=== PATIENT | female | born 1995 | race Caucasian/White ===

== ENCOUNTER 2018-03-08 23:00 | Inpatient (IN) | payer OTHER ==
[2018-03-09] MEDS ORDERED: LIDOCAINE 1% (MPF) 30 ML INJ INJ (00:30)
[2018-03-09] MEDS ORDERED: IBUPROFEN 600 MG TAB PO (00:30)
[2018-03-09] MEDS ORDERED: BUTORPHANOL 2 MG INJ IV (00:30)
[2018-03-09] MEDS ORDERED: CARBOPROST 250 MCG INJ IM ×2 (00:30→13:30)
[2018-03-09] MEDS ORDERED: METHYLERGONOVINE 0.2 MG INJ IM ×2 (00:30→13:30)
[2018-03-09] MEDS ORDERED: OXYTOCIN 30 UNITS/LR 500 ML IV ×2 (00:30→13:30)
[2018-03-09] MEDS ORDERED: MISOPROSTOL 200 MCG TAB PR ×2 (00:30→13:30)
[2018-03-09 01:14] LABS: ADD MAN DIFF? NO
[2018-03-09 01:17] LABS: BASOPHILS % 0.2 % (0.0-2.0); EOSINOPHILS # 0.1 10^3/ul (0.0-0.5); EOSINOPHILS % 0.4 % (0.0-7.0); HEMATOCRIT 35.4 % (37.0-47.0); HEMOGLOBIN 12.1 g/dl (12.0-16.0); LYMPHOCYTES # 2.3 10^3/ul (0.8-2.9); LYMPHOCYTES % 16.8 % (15.0-51.0); MEAN CORPUSCULAR HEMOGLOBIN 30.6 pg (29.0-33.0); MEAN CORPUSCULAR HGB CONC 34.2 g/dl (32.0-37.0); MEAN CORPUSCULAR VOLUME 89.4 fl (82.0-101.0); MEAN PLATELET VOLUME 10.2 fl (7.4-10.4); MONOCYTE # 1.4 10^3/ul (0.3-0.9); MONOCYTES % 10.1 % (0.0-11.0); NEUTROPHILS % 71.9 % (39.0-77.0); PLATELET COUNT 260 10^3/UL (140-415); RED BLOOD COUNT 3.96 10^6/ul (4.20-5.40); RED CELL DISTRIBUTION WIDTH 13.8 % (11.5-14.5)
[2018-03-09 01:17] LABS: WHITE BLOOD COUNT 13.9 10^3/ul (4.8-10.8)
[2018-03-09] MEDS: LACTATED RINGER'S 1,000 ML IV ×3 (01:19→04:19)
[2018-03-09 01:36] LABS: INR 0.88; PT RATIO 0.9
[2018-03-09 02:10] LABS: HEPATITIS B SURFACE ANTIGEN NEGATIVE (NEGATIVE)
[2018-03-09] MEDS ORDERED: ZOLPIDEM 5 MG TAB PO ×2 (02:30→13:30)
[2018-03-09] MEDS ORDERED: KETOROLAC 30 MG INJ IV (02:30)
[2018-03-09] MEDS ORDERED: HYDROmorphONE 0.5 MG/0.5 ML SYG IV ×2 (02:30)
[2018-03-09] MEDS ORDERED: ONDANSETRON 4 MG INJ IV (02:30)
[2018-03-09] MEDS ORDERED: DIPHENHYDRAMINE 50 MG INJ IV (02:30)
[2018-03-09] MEDS ORDERED: NALOXONE (0.4 MG/ML) INJ IV (02:30)
[2018-03-09] MEDS: FENTAnyl 2MCG/ML-ROPIV 0.2% 100 ML BAG EPI (09:41)
[2018-03-09] MEDS: OXYTOCIN 30 UNITS/LR 500 ML IV ×3 (11:11→15:16)
[2018-03-09] MEDS ORDERED: ACETAMINOPHEN 325 MG TAB PO (13:30)
[2018-03-09] MEDS ORDERED: HYDROCODONE/APAP (5/325) TAB PO (13:30)
[2018-03-09] MEDS ORDERED: DIPHENHYDRAMINE 25 MG CAP PO (13:30)
[2018-03-09] MEDS: WITCH HAZEL/GLYCERIN PAD PR (13:39)
[2018-03-09] MEDS: IBUPROFEN 800 MG TAB PO ×3 (13:39→23:59)
[2018-03-09] MEDS: LANOLIN HPA 1 PKT TOP (13:39)
[2018-03-09] MEDS: SENNA/DOCUSATE NA (8.6MG/50MG) TAB PO (13:39)
[2018-03-09] MEDS: MAGNESIUM HYDROXIDE 30ML CUP PO (13:39)
[2018-03-09] MEDS: BENZOCAINE 20% 56 ML SPRAY TOP (13:40)
[2018-03-09] MEDS: MINERAL OIL LIGHT 10 ML VIAL TOP (19:47)
[2018-03-09] MEDS: LACTATED RINGER'S 1,000 ML IV* ×2 (19:47→21:20)
[2018-03-09 22:03] LABS: RAPID PLASMA REAGIN NONREACTIVE (NR)
[2018-03-10] MEDS: LACTATED RINGER'S 1,000 ML IV* (05:20)
[2018-03-10] MEDS: IBUPROFEN 800 MG TAB PO ×3 (05:58→17:39)
[2018-03-10 08:03] LABS: ADD MAN DIFF? NO
[2018-03-10 08:17] LABS: WHITE BLOOD COUNT 16.1 10^3/ul (4.8-10.8)
[2018-03-10 08:17] LABS: BASOPHILS % 0.2 % (0.0-2.0); EOSINOPHILS # 0.1 10^3/ul (0.0-0.5); EOSINOPHILS % 0.7 % (0.0-7.0); HEMATOCRIT 33.6 % (37.0-47.0); HEMOGLOBIN 11.1 g/dl (12.0-16.0); LYMPHOCYTES # 2.4 10^3/ul (0.8-2.9); LYMPHOCYTES % 14.6 % (15.0-51.0); MEAN CORPUSCULAR HEMOGLOBIN 30.1 pg (29.0-33.0); MEAN CORPUSCULAR VOLUME 91.1 fl (82.0-101.0); MEAN PLATELET VOLUME 10.7 fl (7.4-10.4); MONOCYTE # 1.3 10^3/ul (0.3-0.9); NEUTROPHIL # 12.2 10^3/ul (1.6-7.5); NEUTROPHILS % 75.9 % (39.0-77.0); PLATELET COUNT 235 10^3/UL (140-415); RED BLOOD COUNT 3.69 10^6/ul (4.20-5.40); RED CELL DISTRIBUTION WIDTH 14.1 % (11.5-14.5)
[2018-03-10] MEDS: SENNA/DOCUSATE NA (8.6MG/50MG) TAB PO (08:38)
[2018-03-10] MEDS: MAGNESIUM HYDROXIDE 30ML CUP PO (08:38)
[2018-03-10] MEDS: DIPHTH/TET/ACEL PERTUSS (ADULT) 0.5 ML VIAL IM* (13:47)
[2018-03-11] MEDS: LACTATED RINGER'S 1,000 ML IV* ×3 (00:17→06:46)
[2018-03-11] MEDS: IBUPROFEN 800 MG TAB PO ×3 (06:00→11:59)
[2018-03-11] MEDS: MEASLES,MUMPS,RUBELLA VACCINE INJ SC* (09:00)
[2018-03-11] MEDS: VARICELLA VACCINE LIVE/PF 1,350 UNIT/0.5 ML ML SC* (09:00)
== END 2018-03-11 12:40 | disposition home or self-care (01) | DRG 807 ==
LOC: OBT 23:00 → L-D 23:01 → PP1 03-09 13:02
PROVIDERS: Obstetrics & Gynecology
PROC: 10E0XZZ Delivery of Products of Conception, External Approach (ICD-10-PCS; principal; 2018-03-09)
PROC: 0HQ9XZZ Repair Perineum Skin, External Approach (ICD-10-PCS; 2018-03-09)
PROC: 4A1HXCZ Monitoring of Products of Conception, Cardiac Rate, External Approach (ICD-10-PCS; 2018-03-09)
DX: O70.0 First degree perineal laceration during delivery (principal); Z37.0 Single live birth; Z3A.38 38 weeks gestation of pregnancy
CPT/HCPCS: 85025; 85610; 85730; 86592; 86850; 86900; 86901; 87340